=== PATIENT | male | born 1965 | race Caucasian/White ===

== ENCOUNTER 2018-06-21 19:34 | Observation (INO) ==
[2018-06-22] MEDS ORDERED: Heparin Drip 25,000 UNIT/250 ML BAG IV.CONT PRN (02:52)
[2018-06-22] MEDS ORDERED: Bisacodyl 10 MG Supp RECTAL PRN (02:52)
[2018-06-22] MEDS ORDERED: Acetaminophen 325 MG Tablet PO PRN (02:52)
[2018-06-22 03:41] LABS: Activated Partial Thrombo Time 25.2 sec (23.4-31.7); Prothrombin Time 10.1 sec (9.8-11.6)
--- NOTE | 2018-06-22 09:13 | P.HP ---
History of Present Illness Primary Care Physician: UNKNOWN Chief Complaint: Left leg pain History of Present Illness: 52-year-old male who has no chronic medical illnesses presented to the hospital because of the left lower extremity edema, bruising. Patient states that he injured his left knee 1 week ago when he was trying to jump out of a ditch and hit his left knee. Patient had workup done outpatient setting and plans to have surgery done end of next week for meniscus injury. Patient started noticing increased ecchymosis of his left thigh on Wednesday and his knee progressively got more swollen and painful. Patient has been ambulating with a crutch and not using his left leg. Patient had workup done emergency department found to have DVT of the left lower extremity. Is recommended by the ER physician that the patient be observed in the hospital for further evaluation and management. - Diagnosis (1) Deep vein thrombosis (DVT) of left lower extremity Review of Systems All other systems reviewed negative except as stated in HPI Musculoskeletal: Reports abnormal walking, Reports joint swelling, Reports limited joint movement PMFSH - History History Provided By: Patient, Significant Other - Medical History Medical History: Medical History (Last Updated 06/22/18 @ 09:06 by ALTAGRACIA Han) No pertinent past medical history - Surgical History Surgical History: Surgical History (Last Updated 06/22/18 @ 09:07 by ALTAGRACIA Han) History of right inguinal hernia repair - Family History Family History: Family History (Last Updated 06/22/18 @ 09:04 by ALTAGRACIA Han) Sister Family history of breast cancer Family history of multiple sclerosis Mother Family history of breast cancer Family history of hypertension Father Family history of scleroderma - Tobacco History Second Hand Smoke Exposure: No Tobacco Use In Past 30 Days: Yes Smoking Status: Current every day smoker Tobacco Type: Cigars - Alcohol History How Often Do You Have a Drink Containing Alcohol: 2 to 4 times a month - Substance Use History Substance History: Active Abuse - Substance Use Type Marijuana Status: Active Route Used: Inhalation Reason for Use: Calm Down, Feels Good - Travel History Recent Travel in the [place] Within the Last 8 Weeks: No Recent Travel Out of the Country Within the Last 8 Weeks: No - Immunization History Hx Influenza Vaccine This Season: No Medications and Allergies Active Medications: Active Medications Acetaminophen (Tylenol) 650 mg PO Q4H PRN PRN Reason: Temp > 100.4 Al Hydroxide/Mg Hydroxide (Milk Of Magnesia Liq) 30 ml PO Q12H PRN PRN Reason: Mild Constipation Bisacodyl (Dulcolax Supp) 10 mg RECTAL DAILY PRN PRN Reason: SEVERE CONSITIPATION Heparin Sodium/Dextrose (Heparin/D5w 25,000 U/250 Ml) 25,000 unit in 250 mls @ 0 mls/hr IV.CONT TITRATE PRN; Protocol PRN Reason: Per Protocol Last Admin: 06/22/18 03:37 Dose: 1,800 units/hr, 18 mls/hr Lactulose (Lactulose Liq) 30 ml PO DAILY PRN PRN Reason: SEVERE CONSITIPATION Ondansetron HCl (Zofran Inj) 4 mg IV.PUSH Q6H PRN PRN Reason: NAUSEA OR VOMITING Sennosides (Senokot) 17.2 mg PO Q12H PRN PRN Reason: Moderate Constipation Allergies Allergy/AdvReac Type Severity Reaction Status Date / Time No Known Allergies Allergy Verified 06/21/18 20:09 Home Medications Medication Instructions Recorded Confirmed Type No Known Home Medications 06/21/18 06/21/18 History Exam Vital signs: Vital Signs 06/22/18 03:07 06/22/18 04:00 Temperature 97.6 F 96.4 F L Pulse Rate 85 85 Respiratory Rate 20 20 Blood Pressure 146/96 H 119/84 Pulse Oximetry 96 97 Intake & Output 06/21/18 06/22/18 06/22/18 18:59 06:59 18:59 Intake Total 240 / 240 Balance 240 / 240 Weight 90.1 kg Intake: Oral 240 / 240 Other: # Voids 1 Date of Last Bowel Movement 06/21/18 Weight On Admission 90.2 kg Narrative: GENERAL: Well-developed, well-nourished, in no acute distress. alert and orientated HEENT: Head is normocephalic without any lesions or masses noted. Facial features are symmetric. Eyes: Pupils equal round reactive to light. Extraocular muscles are intact. Conjunctivae were clear. Oropharyngeal: Pharynx without any erythema edema. Tongue is midline without deviation. Buccal mucosa is moist without any masses or lesions NECK: Supple without any masses. Trachea midline no deviation. No JVD, no bruits are appreciated CARDIAC: Regular rhythm, regular rate. S1/S2 are heard. No murmurs gallops or rubs. LUNGS: Clear to auscultation bilaterally. No wheeze, rhonchi or rales. No use of accessory muscles on inspiration or expiration. ABDOMEN: Soft, nontender. Nondistended. Bowel sounds heard in all 4 quadrants. No organomegaly or masses. Negative rebound, negative guarding EXTREMITIES: pulses are equal bilaterally. No cyanosis or clubbing NEUROLOGY: Mood and affect appear appropriate. Cranial nerves II through XII grossly intact. Muscle strength 5/5 in upper and lower extremities bilaterally. Deep tendon reflexes are 2+ in upper and lower extremities bilaterally. LEFT LOWER EXTREMITY: There is mild edema noted distal left lower extremity as compared to the right. Patient does have ecchymosis noted to the medial posterior aspect of his left thigh with signs of aging and improvement. Results - Labs Labs: Laboratory Results - last 24 hr 06/22/18 03:20 PT 10.1 INR 1.0 APTT 25.2 Caprini VTE Risk Assessment Caprini VTE Risk Assessment: Moderate/High Risk (score >= 2) VTE Mechanical Exception: LE injury/wound Caprini Risk Assessment Model: Point Value = 1 Point Value = 2 Point Value = 3 Point Value = 5 Age 41-60 Minor surgery BMI > 25 kg/m2 Swollen legs Varicose veins or History of unexplained or recurrent spontaneous Oral contraceptives or hormone replacement Sepsis (< 1 month) Serious lung disease, including pneumonia (< 1 month) Abnormal pulmonary function Acute myocardial infarction Congestive heart failure (< 1 month) History of inflammatory bowel disease Medical patient at bed rest Age 61-74 Arthroscopic surgery Major open surgery (> 45 min) Laparoscopic surgery (> 45 min) Malignancy Confined to bed (> 72 hours) Immobilizing plaster cast Central venous access Age >= 75 History of VTE Family history of VTE Factor V Leiden Prothrombin [id number] Lupus anticoagulant Anticardiolipin antibodies Elevated serum homocysteine Heparin-induced thrombocytopenia Other congenital or acquired thrombophilia Stroke (< 1 month) Elective arthroplasty Hip, pelvis, or leg fracture Acute spinal cord injury (< 1 month) Prophylaxis Regimen: Total Risk Factor Score Risk Level Prophylaxis Regimen 0-1 Low Early ambulation 2 Moderate Order ONE of the following: *Sequential Compression Device (SCD) *Heparin 5000 units SQ BID 3-4 Higher Order ONE of the following medications: *Heparin 5000 units SQ TID *Enoxaparin/Lovenox 40 mg SQ daily (WT < 150 kg, CrCl > 30 mL/min) *Enoxaparin/Lovenox 30 mg SQ daily (WT < 150 kg, CrCl > 10-29 mL/min) *Enoxaparin/Lovenox 30 mg SQ BID (WT < 150 kg, CrCl > 30 mL/min) AND/OR *Sequential Compression Device (SCD) 5 or more Highest Order ONE of the following medications: *Heparin 5000 units SQ TID (Preferred with Epidurals) *Enoxaparin/Lovenox 40 mg SQ daily (WT < 150 kg, CrCl > 30 mL/min) *Enoxaparin/Lovenox 30 mg SQ daily (WT < 150 kg, CrCl > 10-29 mL/min) *Enoxaparin/Lovenox 30 mg SQ BID (WT < 150 kg, CrCl > 30 mL/min) AND *Sequential Compression Device (SCD) Assessment and Plan - Assessment (1) Deep vein thrombosis (DVT) of left lower extremity Code(s): I82.402 - Acute embolism and thrombosis of unspecified deep veins of left lower extremity Status: Acute - Plan Deep vein thrombosis of the left lower extremity -Secondary to recent trauma and decreased use and activity -Patient was started on heparin IV, will discontinue that at this time -Start Xarelto -Counseled patient extensively on deep vein thrombosis, patient will need to follow with a prior medical doctor for continued management -Notify patient that he will have to contact his surgeon and let him know that he has deep vein thrombosis, since he will need to address this prior to surgical intervention Discussed Condition With: Discussed with , Mrs. Multani multiple times. Initially nursing staff indicated that patient's wanted to discuss his care. I called her at her place of business. I discussed his clinical condition, treatment plan, discharge planning. Rangel Holliday is a very concerned and caring and was very upset with the treatment that he received at the hospital. She indicated that she was told by nursing staff that he would require hospitalization with heparin IV for a few days in the hospital until he was stabilized. She is very concerned that he was being discharged. She stated that she did not give authorization for discharge until he spoke with her first. The had multiple questions in which it was difficult answering because she would not pause in her discussion to allow responses. When I did have opportunity to discuss with her the ultrasound studies, pathophysiology of DVTs, current treatment plan for [id number] DVTs, she still had multiple requests and demands that needed to be done prior to her feeling comfortable with him being discharged. She was adamant that she wanted the result of the PTT to see if the heparin was therapeutic. She also want to know the exact size of the DVT. Patient demanded that she wanted me to call her back once I have that information available for her. Mrs. Multani continue to reiterate the fact that her is the patient, she is his advocate, that they are customers and she demands that we do what ever the customer wants. I acknowledged her request and notified her that I would obtain the information that she wants and supply her with that once I receive it. I did procure the information that she requested. The PTT level was 50.9 which was therapeutic. I did call radiology, Dr. Torres, who reviewed the ultrasound and indicated the location of the clot and he is unable to determine the actual size of the clot. However he indicated that it is below the knee DVT in the left posterior tibial vein which does not have increased risk to cause a life-threatening pulmonary emboli. He indicated that there was no criteria from the ultrasound in which the patient needed inpatient treatment. I contacted Mrs. Multani back, once I obtained the information that she requested. I notified her of the PTT result which was therapeutic, and notified her that I spoke to radiologist Dr. Torres who reviewed the ultrasound. I notified her that the radiologist stated that they could not measure the clot. I notified her that the radiologist indicated that due to the placement, position of the clot patient on the ultrasound, the objective finding does not meet criteria for hospital treatment and no risk for life- threatening pulmonary emboli. Ms. Multani requested that I contact the radiologist for him to change the ultrasound report to indicate what was verbally collaborated and call her back once it is complete. I notified her that I would contact the radiologist notify him of her request. Mrs Multani started getting angry, reiterating the fact that her and her are customers and that we should do what she wants us to do. She indicated that if she does not get what she wants, she insinuated that she would cause more problems to get what she wants. I did as the patient's requested and contacted Dr. Torres. Notified him of her request to change the reading or add an addendum. He states that he cannot do that. That what she is asking for is beyond the scope with a study. I contacted Mrs. Multani back and notified her of the radiologist response that is beyond the scope of the study in order to add the information that she is requesting. She stated okay and indicated that she had contacted Joaine who is going to be in contact with Paresh in order to rectify the situation. Discharge Planning: Discharge home in stable condition Activity: Ad uzma. Diet: Regular diet Medication per medication reconciliation Follow-up with primary medical doctor in 1 week
[2018-06-22] MEDS ORDERED: Rivaroxaban 15 MG Tablet PO SCH (09:15)
[2018-06-22 09:33] VITALS: PULSE 89; RESP 18; TEMP 98.6
[2018-06-22 09:57] VITALS: BP 133/88; O2SAT 96
== END 2018-06-22 15:25 | disposition home or self-care (01) ==
LOC: PH3 06-22 02:15 → PHED 06-22 02:15
PROVIDERS: ADMIT Family Medicine; ATTEND Family Medicine